=== PATIENT | male | born 1950 | race Caucasian/White ===

== ENCOUNTER → 2017-03-23 | Day surgery (SDC) | payer MEDICARE, OTHER ==
[~2017-03-23] MED LIST: LIDOCAINE 1% PF 2 ML VIAL. ID; MIDAZOLAM HCL/PF 2 MG/2 ML VIAL. IV; PROPOFOL 0 ML IV; fentaNYL PF VIAL 100 MCG/2 ML VIAL IV
[2017-03-23] MEDS: IV RINGERS,LACTATED 1000ML 1,000 ML IV ×2 (08:34)
== END | disposition home or self-care (01) ==
LOC: ENDOS 08:01
DX: Z12.11 Encounter for screening for malignant neoplasm of colon (principal); K64.0 First degree hemorrhoids; Z87.39 Personal history of other diseases of the musculoskeletal system and connective tissue; Z72.89 Other problems related to lifestyle
CPT/HCPCS: G0121; J2704